=== PATIENT | female | born 2000 | race Caucasian/White ===

== ENCOUNTER 2021-12-07 14:31 | Emergency (ER) | payer MEDICAID ==
[~2021-12-07] VITALS: Ht 162.6 cm; Wt 85.7 kg
[2021-12-07 14:31] VITALS: BP_SYST 143
--- NOTE | 2021-12-07 14:31 | NUR ---
BROUGHT IN BY ANNA ELY, PLACED IN BED #4 AND TRIAGED. REPORT GIVEN TO NGA
--- NOTE | 2021-12-07 14:36 | NUR ---
PT STATES THAT SHE HAS MULTIPLE PROBLEMS WITH PSYCH ISSUES. PT STATES SHE HAS BIPOLAR, SCHIZOAFFECTIVE, DEPRESSION AND ANXIETY. NOW PT IS UNDER ARREST BY [facility]. STATES LOWER BACK PAIN FROM CHRONIC BACK PAIN.
--- NOTE | 2021-12-07 14:45 | NUR ---
DR JARAMILLO AT BEDSIDE FOR EVALUATION
--- NOTE | 2021-12-07 15:03 | NUR ---
Patient given written and verbal discharge instructions and verbalizes understanding. ER MD discussed with patient the results and treatment provided. Patient in stable condition. ID arm band removed. Rx of NONE given. Patient educated on pain management and to follow up with PMD. Pain Scale 0/10. Opportunity for questions provided and answered. Medication side effect fact sheet provided.
== END 2021-12-07 15:03 ==
LOC: SED 14:31
DX: Z88.8 Allergy status to other drugs, medicaments and biological substances; Z79.899 Other long term (current) drug therapy
CPT/HCPCS: 99283